=== PATIENT | male | born 1990 | race Caucasian/White ===

== ENCOUNTER 2018-08-01 12:17 | Emergency (ER) | payer SELFPAY ==
[2018-08-01] MEDS ORDERED: Morphine INJ* 4 MG/ML 1 ML SYRINGE (NEW SYRINGE VERSION) IV ONE (12:55)
[2018-08-01] MEDS ORDERED: Ondansetron INJ* 2 MG/ML VIAL IV ONE (12:55)
[2018-08-01] MEDS ORDERED: NS 0.9% 1000 ML* 1,000 ML IV ONE (12:55)
--- NOTE | 2018-08-01 13:06 | ED ---
Abdominal Pain/Male - HPI Summary HPI Summary: The patient is a 28 y/o M presenting to [facility] with a chief complaint of severe pain and erythema in the left testicle starting last night with worsening of swelling this morning. The pain, which is currently rated 10/10 in severity, radiates from his LLQ into his inguinal area of his left leg, and also into his left lower back. The pain is described as a dull constant pain. He additionally reports hematuria. He was not in pain prior to last night, and he denies hx of renal calculi. He is a heavy everyday smoker and weekly drinker. He has hx of epididymitis. - History of Current Complaint Chief Complaint: EDAbdPain Stated Complaint: LT TESTICAL INJURY Time Seen by Provider: 08/01/18 12:47 Hx Obtained From: Patient Onset/Duration: Sudden Onset, Lasting Hours - starting last night, Still Present , Worse Since - this morning - swelling and redness increased Timing: Constant, Lasting Hours Severity Initially: Moderate Severity Currently: Severe Pain Intensity: 10 Pain Scale Used: 0-10 Numeric Location: Discrete At: LLQ Radiates: Yes Radiates to: Back - left lower, Inguinal - left leg Character: Dull Aggravating Factor(s): Nothing Alleviating Factor(s): Nothing Associated Signs And Symptoms: Positive: Back Pain - left lower, Other - hematuria - Allergies/Home Medications Allergies/Adverse Reactions: Allergies Allergy/AdvReac Type Severity Reaction Status Date / Time No Known Allergies Allergy Verified 10/24/15 15:40 PMH/Surg Hx/FS Hx/Imm Hx Endocrine/Hematology History: Denies: Hx Diabetes Cardiovascular History: Denies: Hx Hypertension History: Reports: Other Problems/Disorders - epididymitis Opthamlomology History: Denies: Hx Legally Blind EENT History: Denies: Hx Deafness - Surgical History Surgery Procedure, Year, and Place: shoulder surgery as a child Infectious Disease History: No Infectious Disease History: Denies: Traveled Outside the [place] in Last 30 Days - Family History Known Family History: Negative: Cardiac Disease, Hypertension, Diabetes - Social History Alcohol Use: Weekly Substance Use Comment - Amount & Last Used: last week Smoking Status (MU): Heavy Every Day Tobacco Smoker Review of Systems Positive: Abdominal Pain - LLQ radiating to left leg Genitourinary: Other - left testicular pain with erythema and swelling Positive: hematuria Positive: Other - low left back pain All Other Systems Reviewed And Are Negative: Yes Physical Exam - Summary Physical Exam Summary: Appearance: Well appearing, no pain distress Skin: warm, dry, reflects adequate perfusion Head/face: normal Eyes: EOMI, CARMELA ENT: normal Neck: supple, non-tender Respiratory: CTA, breath sounds present Cardiovascular: RRR, pulses symmetrical Abdomen: soft, left flank tenderness Exam: swelling, redness, and tenderness in the left testicle Bowel: present Musculoskeletal: normal, strength/ROM intact Neuro: normal, sensory motor intact, A&Ox3 Triage Information Reviewed: Yes Vital Signs On Initial Exam: Initial Vitals Temp Pulse Resp BP Pulse Ox 98.8 F 82 16 169/99 100 08/01/18 12:19 08/01/18 12:19 08/01/18 12:19 08/01/18 12:19 08/01/18 12:19 Vital Signs Reviewed: Yes Diagnostics - Vital Signs Vital Signs Temp Pulse Resp BP Pulse Ox 08/01/18 12:19 98.8 F 82 16 169/99 100 - Laboratory Result Diagrams: 08/01/18 12:54 08/01/18 12:54 Lab Statement: Any lab studies that have been ordered have been reviewed, and results considered in the medical decision making process. - Ultrasound No standard instances Ultrasound Interpretation Completed By: Radiologist Summary of Ultrasound Findings: Testicular US: Enlarged left epididymis with increased vascularity and complex loculated left hydrocele. There is decreased vascular flow within the left testicle which is high resistance relative to the right side. The findings would be most consistent with epididymal orchitis. The decreased flow within the left testicle likely secondary to. Swelling and mass effect from the infectious process less likely a partial torsion which would not explained the epididymal findings. ED physician has reviewed this report. Re-Evaluation - Re-Evaluation First Eval Re-Evaluation Time: 13:40 Change: Improved Comment: He is feeling better after medication. I spoke with the patient concerning imaging results. I also spoke with him about Dr. Ibarra coming to talk to him in the ED. Second Eval Re-Evaluation Time: 15:45 Change: Improved Comment: I spoke with the patient about discharge home with follow up with Dr. Ibarra tomorrow. Abdominal Pain Fem Course/Dx - Course Course Of Treatment: The patient is a 28 y/o M presenting to [facility] with a chief complaint of pain, redness, and swelling in the left testicle starting last night with worsening into today. The pain radiates to his lower back, but he denies hx of kidney stones, but has hx of epididymitis. Upon exam, there is tenderness of the left testicle with swelling and redness, and tenderness in the left flank. In the ED course, the patient is given Ns, Ibuprofen, Morphine, Zofran, and Ceftriaxone. Blood work and UA obtained. Testicular US reveals epididymal orchitis and possible partial torsion. I spoke with Dr. Shakir Ibarra , urology, at [1340] concerning patient's presentation; he will come talk to the patient in the ED. Dr. Ibarra's consult at [1400] leaves us to believe that this is not testicular torsion. Patient will be diagnosed with epidydmo- orchitis and UTI. He will be discharged with a prescription for Ciprofloxacin, Doxycycline, Ibuprofen, and Oxycodone. He will also follow up with Dr. Ibarra tomorrow. Patient understands and agrees. He understands the need for return to the ED as necessary. - Diagnoses Differential Diagnosis/HQI/PQRI: Epididymitis, Testicular Torsion, Urinary Tract Infection Provider Diagnoses: Epididymo-orchitis, UTI (urinary tract infection) - Provider Notifications Discussed Care Of Patient With: Shakir Ibarra - urologist Time Discussed With Above Provider: 13:40 Instructed by Provider To: Other - Dr. Shakir Ibarra, urologist, will speak with the patient in the ED. Discharge - Sign-Out/Discharge Documenting (check all that apply): Patient Departure - Patient will be discharged home. - Discharge Plan Condition: Stable Disposition: HOME Prescriptions: Ciprofloxacin HCl [Cipro 500 MG TAB] 500 mg PO BID #20 tab DOXYcycline CAP(*) [DOXYcycline 100MG CAP(*)] 100 mg PO BID #20 cap Ibuprofen TAB* [Motrin TAB* 600 MG] 600 mg PO Q8H PRN #20 tab MDD 3 PRN Reason: Pain Oxycodone HCl/Acetaminophen [Percocet] 1 tab PO TID #9 tab MDD 3 Patient Education Materials: Epididymo-Orchitis (ED), Urinary Tract Infection in Men (ED) Referrals: Jennifer Morris NP [Primary Care Provider] - Shakir Ibarra MD [Medical Doctor] - 08/02/18 Additional Instructions: Please take medication as prescribed. Follow up with Dr. Ibarra, urology, tomorrow as scheduled. Follow up with your primary care provider as needed. Return to the emergency department if any new or worsening symptoms arise. - Billing Disposition and Condition Condition: STABLE Disposition: Home - Attestation Statements Document Initiated by Scribe: Yes Documenting Scribe: Carmen Martinez Provider For Whom Danette is Documenting (Include Credential): Dr. Damian Hale MD Scribe Attestation: Carmen Brown, scribed for Dr. Damian Hale MD on 08/01/18 at 1723. Scribe Documentation Reviewed: Yes Provider Attestation: The documentation as recorded by the Carmen washington accurately reflects the service I personally performed and the decisions made by me, Dr. Damian Hale MD
[2018-08-01 13:09] LABS: Hematocrit 44 % (42-52); Hemoglobin 15.6 g/dl (14.0-18.0); Mean Corpuscular HGB Conc 35 g/dl (31-36); Mean Corpuscular Hemoglobin 31 pg (27-31); Mean Corpuscular Volume 88 fL (80-94); Mean Platelet Volume 8.4 um3 (7.4-10.4); Platelet Count 202 10^3/ul (150-450); Red Blood Count 5.07 10^6/ul (4.00-5.40); Red Cell Distribution Width 12 % (10.5-15); White Blood Count 19.4 10^3/ul (3.5-10.8)
[2018-08-01 13:28] LABS: EGFR Non-African American 94.7 (>60)
[2018-08-01 14:12] LABS: ABS Basophils 0 10^3/ul (0-0.2); ABS Eosinophils 0 10^3/ul (0-0.6); ABS Lymphocytes 0.5 10^3/ul (1.0-4.8); ABS Monocytes 1.4 10^3/ul (0-0.8); ABS Neutrophils 17.4 10^3/ul (1.5-7.7); ABS Nucleated RBC 0 10^3/ul; Eosinophil % 0.1 % (0-6); Lymphocyte % 2.8 % (25-47); Nucleated Red Blood Cells % 0.1
[2018-08-01] MEDS ORDERED: cefTRIAXone(*) 2 GM in NS 0.9% 100 ML* 100 ML IVPB ONE (14:45)
[2018-08-01] MEDS ORDERED: Gentamicin ADULT (*) 40 MG/ML VIAL IVPB ONE (14:45)
--- NOTE | 2018-08-01 15:20 | RAD ---
INDICATION: Left testicular pain, torsion. COMPARISON: There are no relevant prior studies available for comparison. TECHNIQUE: Multiple real-time images of the testicles were obtained including color Doppler images and Doppler tracings. FINDINGS: The right testicle is normal in shape size and echogenicity. The left testicle appears mildly enlarged and is slightly heterogeneous and hypoechoic in echogenicity. The right testicle measured 5.0 x 2.4 x 3.0 cm and the left testicle measured 4.3 x 2.8 x 3.1 cm. No intratesticular mass is seen. There is vascular flow within both testicles although the flow within the left testicle is high resistance relative to the right side. There is a complex loculated moderate-size left hydrocele. The right epididymis appears to be within normal limits. The left epididymis appears enlarged with increased vascularity. The results of this exam were discussed with the referring clinician and Dr. Garza. IMPRESSION: ENLARGED LEFT EPIDIDYMIS WITH INCREASED VASCULARITY AND COMPLEX LOCULATED LEFT HYDROCELE. THERE IS DECREASED VASCULAR FLOW WITHIN THE LEFT TESTICLE WHICH IS HIGH RESISTANCE RELATIVE TO THE RIGHT SIDE. THE FINDINGS WOULD BE MOST CONSISTENT WITH EPIDIDYMAL ORCHITIS. THE DECREASED FLOW WITHIN THE LEFT TESTICLE LIKELY SECONDARY TO SWELLING AND MASS EFFECT FROM THE INFECTIOUS PROCESS LESS LIKELY A PARTIAL TORSION WHICH WOULD NOT EXPLAINED THE EPIDIDYMAL FINDINGS.
[2018-08-01 15:35] LABS: Urine Appearance Cloudy; Urine Blood Negative (Negative); Urine Color Yellow; Urine Ketones 1+ (Negative); Urine Protein 2+(100 mg/dL) (Negative); Urine Red Blood Cell Absent (Absent); Urine Specific Gravity 1.021 (1.010-1.030); Urine Urobilinogen Negative (Negative); Urine White Blood Cell 3+(>20/hpf) (Absent)
[2018-08-01] MEDS ORDERED: Ibuprofen TAB* 600 MG ONE (15:40)
[2018-08-01] MEDS ORDERED: Ibuprofen TAB* 600 MG PO ONE (15:49)
[2018-08-01] MEDS ORDERED: Gentamicin ADULT (*) 160 MG in NS 0.9% 100 ML* 100 ML IVPB ONE (16:00)
[2018-08-01 17:12] VITALS: BP 139/81
--- NOTE | 2018-08-01 23:26 | CONS ---
UROLOGY CONSULTATION: DATE OF CONSULTATION: 08/01/18 - EMERGENCY DEPT REQUESTING PHYSICIAN: Dr. Hale. DIAGNOSIS: Left testicular pain, possible left epididymitis. HISTORY OF PRESENT ILLNESS: Jose Shine is a 28-year-old gentleman, who presented to the emergency room with onset of left testicular pain about 14 to 15 hours prior to presentation. He states that he had been doing some heavy lifting over the last several days and about 4 days ago, had noticed some blood in the urine. He denies any dysuria. He has a past history of epididymitis (he thinks it was on the left side, but not sure) for which he was treated in [place] in 2011. The pain has been progressively getting worse over the last 12 hours, it is not associated with any nausea or vomiting. There is no flank pain and no history of trauma. PAST MEDICAL HISTORY: Unremarkable, specifically there is no history of diabetes mellitus or any other major systemic illness. MEDICATIONS ON ADMISSION: None. ALLERGIES: No known drug allergies. PHYSICAL EXAM: Reveals a pleasant healthy-appearing young gentleman, who at the time of my examination (my initial examination was at about 1410 hours) is reasonably comfortable with [id number] residual pain (he had received 1 dose of morphine about an hour prior to my examination). Cardiovascular Exam: Regular rate and rhythm. S1, S2. Lungs are clear bilaterally. Abdomen is soft without masses. Testicles are descended bilaterally. The right testicle is normal without masses or tenderness. On the left side, the testicle and epididymis both appear enlarged and tender. It is difficult to do a detailed examination of the epididymis due to the enlargement to elicit whether the tenderness is more in the head, body or tail. On elevation of the testicle, his pain does improve. There are mild hyperemic changes on the surface of the skin. DIAGNOSTIC STUDIES/LAB DATA: I reviewed the labs, which reveal white count of 19.4 with 90% neutrophil. BUN and creatinine are normal at 12 and 0.96. Glucose is slightly elevated at 120. A urinalysis is still pending at the time of this dictation. The patient initially had a scrotal sonogram done, which had noted presence of flow to the left testicle, although it was documented that this was high- resistance flow. The left epididymis is distinctly enlarged and hypervascular strongly suggestive of epididymitis. PLAN/RECOMMENDATIONS: After my examination, I requested Radiology to repeat the ultrasound of the left testicle and I was present at the time of a repeat ultrasound, which confirmed intact flow to the left testicle and also confirmed an enlarged hypervascular left epididymis. My overall opinion is that this represents a left epididymitis, possibly associated with some orchitis and I had a detailed discussion with the patient regarding this likely scenario. I have explained to him that it is impossible to rule out torsion in some circumstances and even though there is flow noted to the testicle, this may blade changer time and I have explained to him that avoiding a surgical exploration may result in loss of the left testicle. I have discussed the pros and cons of starting him on antibiotics to treat him as an epididymitis versus an exploration and at the present time, he would like to avoid any surgical exploration even though he does understand that there is a small risk that he may lose that left testicle if an exploration is not done. The plan is for initiation of intravenous antibiotics to be followed by oral antibiotics. I have also emphasized the close need for followup and plan to see him in my office tomorrow morning for a repeat examination, possibly a repeat ultrasound. He is concerned about the cost and I have explained to him that I am happy to see now and also in followup without charge, so that that should not be an issue in medical decision making. Plan is for intervenous antibiotics (dose of Rocephin and gentamicin) to be followed by outpatient treatment with doxycycline. I have also emphasized to him that if starts running a high fever or if the pain gets worse then he should return to the emergency room as soon as possible. [id number]/[facility] #: [id number] LNA
--- NOTE | 2018-08-04 10:49 | PN ---
Progress Note - Progress Note Date of Service: 08/01/18 Note: Pt. seen in ED 08/01 and started on cipro and doxy for UTI. Final urine culture today growing e. coli susceptible to fluoquinolones. No change in treatment needed at this time.
== END 2018-08-01 17:11 | disposition home or self-care (01) ==
LOC: ED 12:17
DX: N45.3 Epididymo-orchitis (principal); N39.0 Urinary tract infection, site not specified; B96.20 Unspecified Escherichia coli [E. coli] as the cause of diseases classified elsewhere; R31.9 Hematuria, unspecified; F17.200 Nicotine dependence, unspecified, uncomplicated
CPT/HCPCS: 36415; 76870; 80053; 81003; 81015; 83690; 85025; 85610; 85730; 86850; 86900; 86901; 87077; 87086; 87186; 96361; 96365; 96375; 99283; A9270-GY; J0696; J1580; J2270; J2405